=== PATIENT | female | born 1955 | race Caucasian/White ===

== ENCOUNTER 2021-09-16 09:08 | Emergency (ER) | payer MEDICARE, BC, SELFPAY ==
[2021-09-16 09:23] VITALS: BP 155/96; PULSE 83; RESP 18; O2SAT 96; BMI 25.8
--- NOTE | 2021-09-16 09:32 | XRR_ITS ---
PROCEDURE INFORMATION: Exam: XR Left Ankle Exam date and time: 09/16/2021 9:32 AM Age: 65 years old Clinical indication: Injury or trauma; Fall; Sprain or strain; Ankle; Left; Additional info: Pain, swelling TECHNIQUE: Imaging protocol: XR Left ankle. Views: 3 or more views. COMPARISON: No relevant prior studies available. FINDINGS: Bones/joints: Hairline horizontal nondisplaced fracture through the inferior portion of the lateral malleolus. Distention of the ankle joint capsule consistent with posttraumatic joint effusion and/or ligamentous disruption. Soft tissues: Soft tissue swelling over the lateral malleolus. XR/XR ankle LT min 3V* [id number] IMPRESSION: 1. Soft tissue swelling over the lateral malleolus. 2. Hairline horizontal nondisplaced fracture through the inferior portion of the lateral malleolus. 3. Distention of the ankle joint capsule consistent with posttraumatic joint effusion and/or ligamentous disruption.
--- NOTE | 2021-09-16 09:32 | W.ED.EXTPRO ---
HPI - Extremity Problem General: Chief complaint: Extremity Injury, Lower Stated complaint: L ANKLE PAIN Time Seen by Provider: 09/16/21 09:27 History of Present Illness: HPI Narrative: Patient said that she got up from the chair and her foot leg was numb from sitting for a while and when she stood up her left ankle rolled, she heard a pop and felt immediate pain. Patient does have a history of 2 ankle fractures on the right and she says is her due to her osteoporosis. Patient states she was 8 on even surface when this happened. Denies any other injury or problems MD Complaint: joint swelling and joint pain Onset (ago): minute(s) Pain Consistency: constant Location: left and lower extremity Severity scale (1-10): 4 Quality: aching Radiation: none Relieving factors: immobilization Exacerbating factors: range of motion, weight bearing and palpation Associated symptoms: Reports no associated symptoms; Deny chest pain, fever(s) or rash Review of Systems Const: Denies: fever(s), chills or body aches Eyes: Denies: change in vision or blurry vision ENMT: Denies: throat pain or nasal congestion Card: Denies: chest pain or dyspnea on exertion Resp: Denies: dyspnea, productive cough or non-productive cough GI: Denies: abdominal pain, nausea or vomiting Musc: Reports: joint pain and joint swelling (Left ankle); Denies: extremity pain Skin/Breast: Denies: rash Neuro: Denies: headache(s) Psych: Denies: anxiety or depression Conrado/Lymph: Denies: easy bruising Physical Exam Const: COMMON NORMALS: no acute distress GENERAL APPEARANCE: cooperative Resp: COMMON NORMALS: normal respiratory effort Extremity: LEFT LOWER EXTREMITY: Yes ankle joint (Lateral ankle swelling and tenderness.) Left ankle: Yes neurovascular exam (Intact) Course Vital Signs: Vital signs: Vital Signs Pulse Rate 83 09/16/21 09:23 Respiratory Rate 18 09/16/21 09:23 Blood Pressure 155/96 09/16/21 09:23 Pulse Oximetry 96 09/16/21 09:23 Coding Level of Care Code ED Traveling Passenger Agent for Denita Fragoso
[2021-09-16 11:21] VITALS: BP 155/96; PULSE 83; RESP 18; O2SAT 96
--- NOTE | 2021-09-16 11:24 | PC.NURSE ---
Cam boot applied to left foot. Without difficulty.
--- NOTE | 2021-09-17 11:33 | DCPLANNER ---
funeral home manager had message to schedule a follow up appointment for patient with ortho. funeral home manager called the ortho clinic, spoke with Deana, gave clinic patients information. funeral home manager was told that patients information would be printed and reviewed. Clinic will call patient with appointment information.
--- NOTE | 2021-09-18 05:43 | DCPLANNER ---
Patient has a follow up appointment scheduled for Saturday, September 18, 2021 at 3:[address] Owusu at [facility]. Clinic will call patient with appointment information.
--- NOTE | 2021-09-28 11:08 | DCPLANNER ---
Patient had a follow up appointment scheduled for 09.18.21 with ortho - patient did attend appointment.
== END 2021-09-16 11:25 | disposition home or self-care (01) ==
PROVIDERS: Emergency Provider Nurse Practitioner Family; PCP Nurse Practitioner
DX: S82.65XA Nondisplaced fracture of lateral malleolus of left fibula, initial encounter for closed fracture (principal); X50.1XXA Overexertion from prolonged static or awkward postures, initial encounter
CPT/HCPCS: 73610; 97760; 99282; L4361

== ENCOUNTER → 2021-10-16 10:15 | Outpatient (BNVA) | payer MEDICARE, BC, SELFPAY | PROVIDERS: PCP Nurse Practitioner; Visit Provider Orthopaedic Surgery | DX: S82.65XD Nondisplaced fracture of lateral malleolus of left fibula, subsequent encounter for closed fracture with routine healing; X58.XXXD Exposure to other specified factors, subsequent encounter; Z46.89 Encounter for fitting and adjustment of other specified devices; S82.63XD Displaced fracture of lateral malleolus of unspecified fibula, subsequent encounter for closed fracture with routine healing | CPT/HCPCS: 73610; 97760; L1902 ==

== ENCOUNTER 2021-10-16 14:14 | Outpatient (CLI) | payer MEDICARE, BC, SELFPAY | END 2021-10-16 14:15 | disposition home or self-care (01) | LOC: SPT 14:15 | PROVIDERS: PCP Nurse Practitioner; Visit Provider Orthopaedic Surgery | DX: Z46.89 Encounter for fitting and adjustment of other specified devices (principal); S82.63XD Displaced fracture of lateral malleolus of unspecified fibula, subsequent encounter for closed fracture with routine healing; X58.XXXD Exposure to other specified factors, subsequent encounter | CPT/HCPCS: 97760; L1902 ==

== ENCOUNTER 2024-01-19 13:26 | Outpatient (CLI) | payer MEDICARE, SELFPAY ==
--- NOTE | 2024-01-19 13:38 | XR_ITS ---
WS: [id number] SCREENING DEXA SCAN [employer] A/S CLINICAL INFORMATION: OSTEOPOROSIS COMPARISON: None. FINDINGS: The L1-L4 bone mineral density measures 0.889 g/cm2. This corresponds to a T score score of -2.4 and Z score of -1.7. Left femoral neck bone mineral density measures 0.733 g/cm2. This corresponds to a T score of -2.2 an d Z score of -1.4. Right femoral neck bone mineral density measures 0.712 g/cm2. This corresponds to a T score -2.4of an d Z score of -1.5. Mean femoral neck bone mineral density measures 0.722 g/cm2. This corresponds to a T score of -2.3 an d Z score of -1.5. IMPRESSION: Osteopenia lumbar spine and femoral necks at the upper end of the range approaching osteoporosis. Patient's FRAX calculated 10 year probability for major osteoporotic fracture is 20.5% and osteoporot ic hip fracture is 4.7%.
--- NOTE | 2024-01-19 13:39 | MM_ITS ---
WS: [id number] BILATERAL 3D TOMOSYNTHESIS DIGITAL SCREENING MAMMOGRAM WITH CAD CLINICAL INFORMATION: SCREENING HISTORY: Screening mammogram. No current complaints. COMPARISON: 2020 TECHNIQUE: Bilateral CC and MLO views. FINDINGS: Fatty-replaced breasts bilaterally. No suspicious focal mass, asymmetry, calcifications, or windows systems architect ural distortion. No evidence of malignancy. IMPRESSION: MM/[place] [id number] BI-RADS: 1-Negative FOLLOW UP: 1 Year Follow-up Recommend return to annual screening mammography.
== END 2024-01-19 13:27 | disposition home or self-care (01) ==
PROVIDERS: PCP Electrodiagnostic Medicine; Visit Provider Electrodiagnostic Medicine
DX: Z12.31 Encounter for screening mammogram for malignant neoplasm of breast (principal); M81.0 Age-related osteoporosis without current pathological fracture
CPT/HCPCS: 77063; 77067; 77080

== ENCOUNTER 2025-08-03 10:59 | Outpatient (CLI) | payer MEDICARE, SELFPAY ==
--- NOTE | 2025-08-03 11:05 | MM_ITS ---
WS: [id number] BILATERAL SCREENING DIGITAL TOMOSYNTHESIS MAMMOGRAM WITH CAD HISTORY: SCREENING COMPARISON: 01/19/2024, 12/14/2019 Bilateral CC and MLO views with tomosynthesis and synthetic mammography submitted. Computer aided detection analyzed. Breast composition: There are scattered areas of fibroglandular density. No suspicious masses, microcalcifications or architectural distortion. There are a few scattered asymmetries which are stable over multiple prior exams. No suspicious mass or grouping of calcifications. MM/MM scr BI tomosynthesis [id number] IMPRESSION: BI-RADS: 2 - Benign. FOLLOW UP: 1 Year Follow-up
== END 2025-08-03 11:00 | disposition home or self-care (01) ==
PROVIDERS: PCP Electrodiagnostic Medicine; Visit Provider Electrodiagnostic Medicine
DX: Z12.31 Encounter for screening mammogram for malignant neoplasm of breast (principal); R92.323 Mammographic fibroglandular density, bilateral breasts; N64.89 Other specified disorders of breast
CPT/HCPCS: 77063; 77067